=== PATIENT | female | born 1955 | race African-American/Black ===

== ENCOUNTER 2021-07-26 11:50 | Inpatient (IN) | payer MEDICAID ==
[~2021-07-26] VITALS: Ht 165.1 cm; Wt 68.0 kg
[2021-07-26] MEDS ORDERED: LORAZEPAM 2 MG/1 ML VIAL ONE (12:05)
[2021-07-26] MEDS ORDERED: LORAZEPAM 2 MG/1 ML VIAL IV ONE (12:15)
[2021-07-26] MEDS ORDERED: levETIRAcetam IV 1,000 MG in IV DEXTROSE 5% 100 ML IV ONE (12:15)
--- NOTE | 2021-07-26 12:31 | NUR ---
PT IS IN ROOM #1B. DR RENE EVALUATED THE PT.
[2021-07-26 12:32] LABS: HEMATOCRIT 30.5 % (31.2-41.9); MEAN CORPUSCULAR HEMOGLOBIN 30.5 uug (24.7-32.8); MEAN CORPUSCULAR VOLUME 94.6 fL (75.5-95.3); PLATELET COUNT (AUTO) 365 K/uL (179-408)
[2021-07-26 12:39] LABS: CARBON DIOXIDE 20 mmol/L (21-32); CHLORIDE 101 mmol/L (98-107); CREATININE 1.1 mg/dL (0.6-1.3); GLUCOSE 160 mg/dL (74-106); POTASSIUM 3.8 mmol/L (3.5-5.1); UREA NITROGEN, BLOOD 15 mg/dL (7-18)
[2021-07-26 12:45] LABS: ALANINE AMINOTRANSFERASE 46 U/L (14-59); ALKALINE PHOSPHATASE 87 U/L (50-136); ASPARTATE AMINOTRANSFERASE 19 U/L (15-37); BILIRUBIN,DIRECT 0.2 mg/dL (0.0-0.2); BILIRUBIN,TOTAL 0.6 mg/dL (0.2-1.0); ETHANOL < 3 MG/DL (0-0)
--- NOTE | 2021-07-26 13:01 | NUR ---
KEPPRA 1000 MG IVPB INFUSION WAS FINISHED AT 1253.
[2021-07-26 13:53] LABS: *BILIRUBIN,URIN NEGATIVE (NEGATIVE); *BLOOD, URINE 3+ (NEGATIVE); *CLARITY,URINE CLEAR (CLEAR); *COLOR,URINE YELLOW (YELLOW); *KETONES,URINE NEGATIVE (NEGATIVE); *UROBILINOGEN,URINE 0.2 E.U./dl (NORMAL); LEUKOCYTE ESTERASE ,URINE NEGATIVE (NEGATIVE); NITRITE, URINE NEGATIVE (NEGATIVE); PH,URINE 5.5 (5.0-8.0); UGLUCOSE NEGATIVE (NEGATIVE)
[2021-07-26 14:02] LABS: *AMPHETAMINE, URINE NEGATIVE (NEGATIVE); *CANNABINOID, URINE POSITIVE (NEGATIVE); *COCCAINE, URINE POSITIVE (NEGATIVE); *OPIATE, URINE NEGATIVE (NEGATIVE); *PHENCYCLIDINE SCREEN,URINE NEGATIVE (NEGATIVE)
--- NOTE | 2021-07-26 15:54 | NUR ---
REPORT WAS GIVEN TO [employer]ER. PT WAS TRANSFERED TO ROOM #321.
[2021-07-26] MEDS ORDERED: ONDANSETRON 4 MG/2 ML VIAL IV PRN (16:30)
[2021-07-26] MEDS ORDERED: ACETAMINOPHEN 325 MG TABLET PO PRN (16:30)
[2021-07-26] MEDS ORDERED: HYDROCODONE/APAP 5-325MG TABLET PO PRN (16:30)
[2021-07-26] MEDS ORDERED: ZOLPIDEM 5 MG TABLET PO PRN (16:30)
[2021-07-26] MEDS ORDERED: LORAZEPAM 2 MG/1 ML VIAL IV PRN (16:45)
[2021-07-26 16:47] VITALS: BP 119/61
[2021-07-26 16:51] LABS: BACTERIA,URINE FEW /HPF (NONE SEEN)
[2021-07-26 16:52] LABS: SQUAMOUS EPITHELIAL CELL,UR FEW /HPF (NONE SEEN)
[2021-07-26] MEDS: CEphaleXIN 500 MG CAPSULE PO SCH ×2 (17:00→21:52)
--- NOTE | 2021-07-26 17:00 | NUR ---
Patient admitted to tele at this time/under OSTEOPATHIC MEDICINE TEACHER Ron Ramos. Arrived around 1640 to floor. Full assessment done as recorded. Patient noted to remain drowsy, arousable by touch, pain, responds to name when awake, then goes back to sleep. SPO2 @ 97% on RA. Tele, SR. Not coherent enough to carry on a conversation, therefore unable to fully document history. Belongings noted and documented. Upon assessment, noted with redness/tender to touch and warm, on bilateral lower extremities extending to feet. Admitting provider notified. Side rails up x 2. Seizure precautions in place.
--- NOTE | 2021-07-26 18:06 | NUR ---
Unable to administer Keflex PO, patient too drowsy to follow commands. High aspiration risk.
[2021-07-26 20:15] VITALS: BP 128/65
[2021-07-26] MEDS ORDERED: ENOXAPARIN SODIUM 40 MG/0.4 ML DISP.SYRIN SQ SCH (21:00)
[2021-07-26] MEDS: levETIRAcetam 250 MG TABLET PO SCH (21:52)
[2021-07-27 00:03] VITALS: BP 116/58
[2021-07-27 04:18] VITALS: BP 122/62
[2021-07-27] MEDS ORDERED: PANTOPRAZOLE SODIUM 40 MG TABLET.DR PO SCH (07:00)
[2021-07-27] MEDS ORDERED: LEVOTHYROXINE SODIUM 150 MCG TABLET PO SCH (07:00)
--- NOTE | 2021-07-27 07:45 | NUR ---
Received patient in bed, uncooperative, combative and trying to get out of bed . Explained to her that she needs assistance in getting out of bed, bed alarm is functioning well but patient tried to turn it off by herself. Patient insisted she wants to get out of this hospital. Ron Ramos made aware.
[2021-07-27 08:04] LABS: HEMATOCRIT 34.2 % (31.2-41.9); MEAN CORPUSCULAR HEMOGLOBIN 29.9 uug (24.7-32.8); MEAN CORPUSCULAR VOLUME 93.1 fL (75.5-95.3); PLATELET COUNT (AUTO) 459 K/uL (179-408)
[2021-07-27 08:41] LABS: THYROID STIMULATING HORMONE 17.819 mIU/mL (0.358-3.740)
[2021-07-27] MEDS: CEphaleXIN 500 MG CAPSULE PO SCH (08:46)
[2021-07-27] MEDS: levETIRAcetam 250 MG TABLET PO SCH (08:47)
[2021-07-27 08:49] LABS: MAGNESIUM 2.4 mg/dL (1.8-2.4); POTASSIUM 3.8 mmol/L (3.5-5.1)
--- NOTE | 2021-07-27 08:59 | NUR ---
patient is alert and oriented x 3, she wants to talk to the doctor first before she leave the hospital . Ron Ramos made aware.
[2021-07-27 10:28] VITALS: BP 129/77
--- NOTE | 2021-07-27 10:48 | NUR ---
Patient in the hallway , trying to leave, explained to her that doctor will be here and that if she decided to leave AMA, she cannot have her medicines unless she's seen by the doctor. Patient tried to walk by herself , she is unsteady to 3 people tried to assist her but patient said " Don't touch me!" . Security was called. Explained again to the patient what AMA is and she signed the form after 10 mins she changed her mind and decided to wait for Ron Ramos. Assisted patient back to bed. Call light within reach and bed alarm functioning well. Notified Ron Ramos.
--- NOTE | 2021-07-27 11:13 | NUR ---
Patient decided to leave removed her armband and Left forearm IV site. She doesn't want to be assisted. She went by herself in the elevator and Ron Ramos made aware.
== END 2021-07-27 11:13 | disposition left against medical advice (07) | DRG 53 ==
LOC: ER 11:50 → TELE3 15:25
PROVIDERS: ADMIT Nurse Practitioner Family; ATTEND Nurse Practitioner Family
DX: G40.909 Epilepsy, unspecified, not intractable, without status epilepticus (principal); L03.116 Cellulitis of left lower limb; E03.9 Hypothyroidism, unspecified; D64.9 Anemia, unspecified; I10 Essential (primary) hypertension; Z20.822 Contact with and (suspected) exposure to COVID-19; F19.10 Other psychoactive substance abuse, uncomplicated; D72.829 Elevated white blood cell count, unspecified
CPT/HCPCS: 36415; 51702; 70450; 71045; 72125; 83550; 83605; 83735; 84443; 85025; 85730; 93005; A4663; G0378; G0480; J1650; J1953; J2060; J7060

== ENCOUNTER 2022-06-15 08:27 | Emergency (ER) | payer MEDICAID ==
[~2022-06-15] VITALS: Ht 167.6 cm; Wt 52.2 kg
[2022-06-15] MEDS ORDERED: IV NORMAL SALINE 1000 ML BAG IV ONE (08:45)
[2022-06-15] MEDS ORDERED: LEVOTHYROXINE SODIUM 25 MCG TABLET PO ONE (08:45)
[2022-06-15] MEDS ORDERED: levETIRAcetam 250 MG TABLET PO ONE (08:45)
[2022-06-15] MEDS ORDERED: LEVOTHYROXINE SODIUM 25 MCG TABLET ONE (08:46)
[2022-06-15] MEDS ORDERED: levETIRAcetam 250 MG TABLET ONE (08:46)
[2022-06-15 09:09] LABS: HEMATOCRIT 38.5 % (31.2-41.9); MEAN CORPUSCULAR HEMOGLOBIN 29.3 uug (24.7-32.8); MEAN CORPUSCULAR VOLUME 89.8 fL (75.5-95.3); PLATELET COUNT (AUTO) 368 K/uL (179-408)
[2022-06-15] MEDS ORDERED: LEVE500T9 PO (09:58)
[2022-06-15 10:02] LABS: CARBON DIOXIDE 26 mmol/L (21-32); CHLORIDE 100 mmol/L (98-107); CREATININE 1.3 mg/dL (0.6-1.3); GLUCOSE 103 mg/dL (74-106); POTASSIUM 3.4 mmol/L (3.5-5.1); UREA NITROGEN, BLOOD 21 mg/dL (7-18)
[2022-06-15 10:06] LABS: ETHANOL < 3 MG/DL (0-0)
[2022-06-15 10:07] LABS: *BILIRUBIN,URIN 1+ (NEGATIVE); *BLOOD, URINE 3+ (NEGATIVE); *CLARITY,URINE SLIGHTLY CLOUDY (CLEAR); *COLOR,URINE YELLOW (YELLOW); *KETONES,URINE TRACE (NEGATIVE); *UROBILINOGEN,URINE 0.2 E.U./dl (NORMAL); LEUKOCYTE ESTERASE ,URINE NEGATIVE (NEGATIVE); NITRITE, URINE NEGATIVE (NEGATIVE); PH,URINE 5.5 (5.0-8.0); UGLUCOSE NEGATIVE (NEGATIVE)
[2022-06-15 10:21] LABS: *AMPHETAMINE, URINE POSITIVE (NEGATIVE); *CANNABINOID, URINE POSITIVE (NEGATIVE); *OPIATE, URINE NEGATIVE (NEGATIVE); *PHENCYCLIDINE SCREEN,URINE NEGATIVE (NEGATIVE)
[2022-06-15 10:29] LABS: *COCCAINE, URINE POSITIVE (NEGATIVE)
[2022-06-15 10:37] LABS: BACTERIA,URINE MODERATE /HPF (NONE SEEN); SQUAMOUS EPITHELIAL CELL,UR MODERATE /HPF (NONE SEEN); WBC,URINE 0-3 /HPF (0-3)
[2022-06-15] MEDS ORDERED: POTA-194 PO (10:40)
[2022-06-15] MEDS ORDERED: POTASSIUM CHLORIDE 20 MEQ TAB.PRT.SR ONE (10:42)
[2022-06-15] MEDS ORDERED: POTASSIUM CHLORIDE 20 MEQ TAB.PRT.SR PO ONE (10:45)
--- NOTE | 2022-06-15 10:50 | NUR ---
Patient discharged to home in stable condition. Written and verbal after care instructions given. Patient verbalizes understanding of instructions. Stressed follow up or return to ER for worsening s/s.
[2022-06-15 10:51] VITALS: BP 155/80
== END 2022-06-15 10:52 | disposition home or self-care (01) ==
LOC: MERGE 08:27 → ER 08:27
DX: G40.909 Epilepsy, unspecified, not intractable, without status epilepticus (principal); E87.6 Hypokalemia; Z59.00 Homelessness unspecified; Z88.6 Allergy status to analgesic agent; Z91.041 Radiographic dye allergy status; F15.90 Other stimulant use, unspecified, uncomplicated; F14.90 Cocaine use, unspecified, uncomplicated; F12.90 Cannabis use, unspecified, uncomplicated
CPT/HCPCS: 80048; 81001; 85025; 87086; 36415; 99284; 96360; 80320; 80307; J7040; A4663; G0480